=== PATIENT | female | born 1955 | race Caucasian/White ===

== ENCOUNTER 2016-10-27 19:03 | Emergency (ER) | payer BC ==
[~2016-10-27] VITALS: Ht 175.3 cm; Wt 79.4 kg
[~2016-10-27 19:03] MED LIST: ABILIFY2 MG ORAL; CYMBALTA60 MG PO; LAMICTAL25 MG ORAL; LOVENOX10 M4 SUBQ; PROVIGIL200 MG PO; SIMVASTATIN20 MG ORAL; WELLBUTRIN100 MG PO
[2016-10-27] MEDS ORDERED: ZOLOFT25 MG ORAL (19:24)
[2016-10-27 19:39] VITALS: BP 128/85
[2016-10-27] MEDS ORDERED: KEFLEX500 MG ORAL (19:41)
[2016-10-27 19:48] VITALS: BP 128/85
--- NOTE | 2016-10-27 19:52 | Emergency Room Report ---
History of Present Illness General Chief Complaint: Skin Rash/Abscess Source: Patient Present Illness HPI [id number] sent from PMD to eval rash on chest 5 days duration Started Sunday after she was "very hot and sweaty" with tight-fitting bra. Associated with itch No vesicles or blisters No fever/chills No history of Dm Takes lamictal for seizures. PMD went down on her dose, "maybe thats the cause. " Allergies: Coded Allergies: NO KNOWN ALLERGIES (Verified Allergy, Unknown, 09/21/15) Patient History Past Medical History: seizures Past Surgical History: none Pertinent Family History: none Social History: Denies: alcohol use, drug use, smoking Now: No Immunizations: UTD Reviewed Nursing Documentation: PMH: Agreed, PSxH: Agreed Nursing Documentation-PMH Hx Cardiac Problems: Yes Hx Cancer: No Hx Gastrointestinal Problems: No History Of Psychiatric Problem: Yes - Depression Hx Neurological Problems: No Review of Systems All Other Systems: negative except mentioned in HPI Physical Exam Vital Signs Date Time Temp Pulse Resp B/P Pulse Ox O2 Delivery O2 Flow Rate FiO2 10/27/16 19:19 99.9 101 14 131/85 96 Room Air Sp02 EP Interpretation: reviewed, normal General Appearance: normal inspection, well appearing, no apparent distress, alert Head: atraumatic ENT: normal ENT inspection, hearing grossly normal, normal voice Neck: normal inspection, full range of motion, supple, no bony tend Respiratory: normal inspection, lungs clear, normal breath sounds, no respiratory distress, no retraction, no wheezing Cardiovascular #1: regular rate, rhythm, no edema Gastrointestinal: normal inspection, normal bowel sounds, non tender, soft, no guarding, no hernia Genitourinary: no CVA tenderness Musculoskeletal: normal inspection, back normal, normal range of motion, Juanito' s Sign negative Neurologic: normal inspection, alert, oriented x3, responsive, degreaser operator III-XII nml as tested, motor strength/tone normal, speech normal Psychiatric: normal inspection, judgement/insight normal, mood/affect normal Skin: other - Under both breasts there is a large non-regular area of erythema , raised border. No vesicles. Doesnt follow dermatomal distribution. No blisters. Medical Decision Making Diagnostic Impression: Primary Impression: Rash and other nonspecific skin eruption ER Course Rash - Likely heat rash, maybe now cellulitis component - Doesnt follow dermatomal distribution so unlikely zoster - no vesicles or blistering - Afebrile. No systemic symptoms - unlikely fabricio mancia as is focal in area , not widespread Last Vital Signs Date Time Temp Pulse Resp B/P Pulse Ox O2 Delivery O2 Flow Rate FiO2 10/27/16 19:39 99.9 98 16 128/85 96 Room Air Status: improved Disposition: HOME, SELF-CARE Condition: Improved Scripts Cephalexin* (KEFLEX*) 500 Mg Capsule 500 MG ORAL Q6H for 7 Days, #28 CAP 0 Refills Prov: JAMES CREWS M.D. 10/27/16 Patient Instructions: Rash Additional Instructions: - Keep area clean/dry - Take All antibiotics - STOP applying cortisone - Follow up with primary care doctor on Sunday JAMES CREWS M.D. Oct 27, 2016 19:52
== END 2016-10-27 20:15 | disposition home or self-care (01) ==
LOC: EMR 19:50
DX: R21 Rash and other nonspecific skin eruption (principal); G40.909 Epilepsy, unspecified, not intractable, without status epilepticus
CPT/HCPCS: 99283